=== PATIENT | female | born 1985 | race African-American/Black ===

== ENCOUNTER 2023-01-29 00:20 | Emergency (ER) | payer BC ==
--- OUTSIDE RECORDS SUMMARY | 2023-01-29 00:23 | XMS REPORT | Continuity of Care Document ---
:1985 Author Organization [facility] t Address [address] [address] Care Team Providers Name Role Phone [email or web address] Attending Clinician Unavailable [email or web address] Admitting Clinician Unavailable Problems This patient has no known problems. Allergies, Adverse Reactions, Alerts This patient has no known allergies or adverse reactions. Medications This patient has no known medications. Procedures This patient has no known procedures. Encounters Start End Encounter Admission Attending Care Care Encounter Source Date/Time Date/Time Type Type Clinicians Facility Department ID 2023-01-11 2023-01-11 Outpatient [email or web address] PRIV PRIV [id number] [facility] 00:00:00 00:00:00 diyala_S [id number] Medic al Results This patient has no known results.
[2023-01-29 00:52] LABS: Absolute Lymphocytes (CBC) 1.7 K/uL (0.7-4.9); Hematocrit 38.8 % (36.0-45.0); Lymphocytes % 15.9 % (15.3-44.8); MCV 89.4 fL (80-100); MPV 7.9 fL (7.6-11.3); Platelets 248 thou/uL (152-406); RBC Red Blood Cell Count 4.34 M/uL (3.86-4.86)
[2023-01-29] MEDS ORDERED: NA CHLORIDE 0.9% 1,000 ML ONE (01:06)
[2023-01-29] MEDS ORDERED: LORazepam 2 MG/ML VIAL ONE (01:06)
[2023-01-29 01:12] LABS: Potassium 3.4 mEq/L (3.5-5.1); Troponin High Sensitivity 3.2 pg/mL (<58.9)
--- NOTE | 2023-01-29 01:50 | EDPHYS ---
Physician Documentation [facility] Name: Yvrose Ballesteros Age: 37 yrs Sex: Female : 1985 Arrival Date: 01/29/2023 Time: 00:20 Bed 14 Private MD: ED Physician Brian Wheatley HPI: 01/29 00:24 This 37 yrs old Black Female presents to ER via Unassigned with complaints of High ec2 Blood Pressure, Irregular Pulse, Chest Tightness, Headache. 00:49 Patient with history of hypertension as well as ADHD arrives today due to concern for ec2 chest palpitations. States that she had noticed palpitations starting several hours ago. [place] felt her heart racing. Patient reports no chest pain or tightness, denies any leg swelling, denies any PE risk factors. Patient reports a history of ADHD which she takes Adderall for.. Historical: - Allergies: 00:31 No Known Allergies; kl - Home Meds: 00:31 Adderall XR Oral [Active]; BP med [Active]; kl - PMHx: 00:31 Hypertensive disorder; ADHD; kl - Immunization history:: Adult Immunizations not immunized. - Social history:: Smoking status: Patient reports the use of cigarette tobacco products, smokes one-half pack cigarettes per day. ROS: 00:49 Constitutional: as per hpi ec2 Exam: 00:49 Constitutional: GEN: NAD Head: atraumatic Eyes: EOMI Ears: External ears are ec2 normal. CV: Tachycardia LUNGS: no respiratory distress ABD: non-distended SKIN: no evidence of rashes MSK: no evidence of trauma NEURO: moves all extremities equally. Psych: Anxious individual Vital Signs: 00:29 BP 137 / 89; Pulse 115; Resp 20; Pulse Ox 100% on R/A; Weight 72.12 kg; Height 5 ft. 6 kl in. ; Pain 0/10; 00:50 Temp 98.8(O); km8 00:50 BP 121 / 83; Pulse 108; Resp 16; Pulse Ox 100% on R/A; km8 01:00 BP 130 / 87; Pulse 103; Resp 16; Pulse Ox 100% ; km8 01:30 BP 121 / 81; Pulse 101; Resp 16; Pulse Ox 100% on R/A; km8 01:42 BP 121 / 81; Pulse 99; ec2 02:00 BP 123 / 89; Pulse 99; Resp 16; Pulse Ox 100% on R/A; km8 00:29 Body Mass Index 25.66 (72.12 kg, 167.64 cm) kl 00:29 Pain Scale: Adult kl Crawford Coma Score: 00:38 Eye Response: spontaneous(4). Motor Response: obeys commands(6). Verbal Response: km8 oriented(5). Total: 15. MDM: 00:23 Patient medically screened. ec2 00:41 ED course: EKG independently reviewed and interpreted by me, shows sinus tachycardia, ec2 rate of 121, no acute ST segment elevations, nonconcerning intervals.. 00:49 Data reviewed: vital signs. ED course: Patient arrives today due to concern for ec2 palpitations. Examination remarkable for nontoxic individual who is an anxious individual who has tachycardia noted on examination. Will obtain lab work, cardiac work-up, evaluate for processes such as ACS and thyroid pathology as well as electrolyte disturbances. EKG already obtained and interpreted as above. We will also give the patient crystalloid and Ativan.. 01:38 ED course: Patient's lab work remarkable for slight hypokalemia with a potassium of 3.4 ec2 which will supplement. CBC is reassuring. TSH and troponin are reassuring. . 01:39 ED course: Chest x-ray independently reviewed and interpreted by me, shows no acute ec2 intrathoracic process.. 01:48 ED course: On reassessment patient reports complete resolution of her symptoms. I ec2 considered adding on a D-dimer however patient does not report persistent symptoms and does not have a convincing story for PE. If symptoms progress or return instructed her to come back to the emergency department. Will discharge home, return precautions given.. 01/29 00:25 Order name: Basic Metabolic Panel; Complete Time: ec2 01/29 00:25 Order name: CBC with Diff; Complete Time: ec2 01/29 00:25 Order name: Troponin HS; Complete Time: ec2 01/29 00:50 Order name: TSH; Complete Time: ec2 01/29 00:25 Order name: XRAY Chest (1 view) ec2 01/29 00:25 Order name: EKG; Complete Time: 00:25 ec2 11/19 00:25 Order name: Cardiac monitoring; Complete Time: ec2 01/29 00:25 Order name: EKG - Nurse/Tech; Complete Time: ec2 01/29 00:25 Order name: IV Saline Lock; Complete Time: :49 ec2 01/29 00:25 Order name: Labs collected and sent; Complete Time: ec2 01/29 00:25 Order name: O2 Per Protocol; Complete Time: ec2 01/29 00:25 Order name: O2 Sat Monitoring; Complete Time: ec2 Administered Medications: 00:57 Drug: NS 0.9% IV 1000 ml IV at 1 bolus Per protocol; 1000 mL bolus Route: IV; Rate: 1 km8 bolus; Site: right antecubital; 02:17 Follow up: IV Status: Completed infusion; IV Intake: 1000ml km8 00:57 Drug: Ativan IVP 1 mg IVP once Route: IVP; Site: right antecubital; km8 01:39 Follow up: Response: No adverse reaction km8 01:55 Drug: Potassium Chloride PO 40 mEq PO once Route: PO; km8 02:17 Follow up: Response: No adverse reaction km8 Disposition Summary: 01/29/23 01:49 Discharge Ordered Condition: Stable ec2 Diagnosis - Hypokalemia ec2 - Palpitations ec2 Followup: ec2 - With: Private Physician - When: - Reason: Re-evaluation by your physician Discharge Instructions: - Discharge Summary Sheet ec2 - Potassium Content of Foods ec2 - Palpitations ec2 Forms: - Medication Reconciliation Form ec2 - Thank You Letter ec2 - Antibiotic Education ec2 - Prescription Opioid Use ec2 - Patient Portal Instructions ec2 - Leadership Thank You Letter ec2 Signatures: Dispatcher [employer] Zuly Beal RN RN Brian Michael MD MD 2 Carmencita Correa RN RN km8
--- NOTE | 2023-01-29 01:50 | ER ---
Nurse's Notes [facility] Name: Yvrose Ballesteros Age: 37 yrs Sex: Female : 1985 Arrival Date: 01/29/2023 Time: 00:20 Bed 14 Private MD: Diagnosis: Hypokalemia;Palpitations Presentation: 01/29 00:29 Chief complaint: Patient states: "fast heart rate for several hours. Denies chest pain kl at this time dos reports chest pain ans SOB with activity earlier while walking. Coronavirus screen: Vaccine status: Patient reports receiving the 2nd dose of the covid vaccine. Ebola Screen: Patient negative for fever greater than or equal to 101.5 degrees Fahrenheit, and additional compatible Ebola Virus Disease symptoms. Initial Sepsis Screen: Does the patient meet any 2 criteria? No. Patient's initial sepsis screen is negative. Does the patient have a suspected source of infection? No. Patient's initial sepsis screen is negative. Risk Assessment: Do you want to hurt yourself or someone else? Patient reports no desire to harm self or others. 00:29 Method Of Arrival: Ambulatory 00:29 Acuity: RIMA 3 kl 00:41 Onset of symptoms was January 29, 2023. km8 Triage Assessment: 00:32 General: Appears distressed, Behavior is anxious. Pain: Denies pain. Cardiovascular: kl Capillary refill < 3 seconds Rhythm is sinus tachycardia. Respiratory: No deficits noted. GI: No deficits noted. No signs and/or symptoms were reported involving the gastrointestinal system. : No deficits noted. No signs and/or symptoms were reported regarding the genitourinary system. Historical: - Allergies: 00:31 No Known Allergies; kl - Home Meds: 00:31 Adderall XR Oral [Active]; BP med [Active]; kl - PMHx: 00:31 Hypertensive disorder; ADHD; kl - Immunization history:: Adult Immunizations not immunized. - Social history:: Smoking status: Patient reports the use of cigarette tobacco products, smokes one-half pack cigarettes per day. Screenin:38 [facility] ED Fall Risk Assessment (Adult) History of falling in the last 3 months, km8 including since admission No falls in past 3 months (0 pts) Confusion or Disorientation No (0 pts) Intoxicated or Sedated No (0 pts) Impaired Gait No (0 pts) Mobility Assist Device Used No (0 pt) Altered Elimination No (0 pt) Score/Fall Risk Level 0 - 2 = Low Risk Oriented to surroundings, Maintained a safe environment, Educated pt \\T\\ family on fall prevention, incl call for assistance when getting out of bed, Assessed \\T\\ reinforced patient's understanding of fall precautions. Abuse screen: Denies threats or abuse. Denies injuries from another. Nutritional screening: No deficits noted. Tuberculosis screening: No symptoms or risk factors identified. Assessment: 00:38 General: Appears in no apparent distress. comfortable, Behavior is cooperative, km8 appropriate for age, anxious. Pain: Denies pain. n/a Pain began n/a. Neuro: Goodman Agitation-Sedation Scale (RASS): 0 - Alert and Calm Level of Consciousness is awake, alert, obeys commands, Oriented to person, place, time, situation. Cardiovascular: Denies chest pain, Capillary refill < 3 seconds Patient's skin is warm and dry. Respiratory: Reports shortness of breath on exertion Airway is patent Respiratory effort is even, unlabored, Respiratory pattern is regular, symmetrical. GI: No signs and/or symptoms were reported involving the gastrointestinal system. : No signs and/or symptoms were reported regarding the genitourinary system. EENT: No signs and/or symptoms were reported regarding the EENT system. Derm: No signs and/or symptoms reported regarding the dermatologic system. Skin is intact, is healthy with good turgor, Skin is dry, Skin is pink, warm \\T\\ dry. normal, Skin temperature is warm. Musculoskeletal: No signs and/or symptoms reported regarding the musculoskeletal system. Range of motion: intact in all extremities. 01:27 Reassessment: Patient appears in no apparent distress at this time. No changes from km8 previously documented assessment. Patient and/or family updated on plan of care and expected duration. Pain level reassessed. Patient is alert, oriented x 3, equal unlabored respirations, skin warm/dry/pink. 01:56 Reassessment: Patient appears in no apparent distress at this time. Patient and/or km8 family updated on plan of care and expected duration. Pain level reassessed. Patient is alert, oriented x 3, equal unlabored respirations, skin warm/dry/pink. Patient states feeling better. Patient states symptoms have improved. Vital Signs: 00:29 BP 137 / 89; Pulse 115; Resp 20; Pulse Ox 100% on R/A; Weight 72.12 kg; Height 5 ft. 6 kl in. ; Pain 0/10; 00:50 Temp 98.8(O); km8 00:50 BP 121 / 83; Pulse 108; Resp 16; Pulse Ox 100% on R/A; km8 01:00 BP 130 / 87; Pulse 103; Resp 16; Pulse Ox 100% ; km8 01:30 BP 121 / 81; Pulse 101; Resp 16; Pulse Ox 100% on R/A; km8 01:42 BP 121 / 81; Pulse 99; ec2 02:00 BP 123 / 89; Pulse 99; Resp 16; Pulse Ox 100% on R/A; km8 00:29 Body Mass Index 25.66 (72.12 kg, 167.64 cm) kl 00:29 Pain Scale: Adult kl Mikki Coma Score: 00:38 Eye Response: spontaneous(4). Motor Response: obeys commands(6). Verbal Response: km8 oriented(5). Total: 15. ED Course: 00:23 Patient arrived in ED. [id number] 00:23 Brian Wheatley MD is Attending Physician. ec2 00:24 Carmencita Correa, TRACI is Primary Nurse. km8 00:31 Triage completed. kl 00:33 EKG completed in triage. Results shown to MD. kl 00:38 Patient has correct armband on for positive identification. Placed in gown. Bed in low km8 position. Call light in reach. Side rails up X2. Client placed on continuous cardiac and pulse oximetry monitoring. NIBP monitoring applied. monitoring manager on. Door closed. Noise minimized. Lights dimmed. 00:38 Patient maintains SpO2 saturation greater than 95% on room air. km8 00:41 Arm band placed on right wrist. km8 00:49 XRAY Chest (1 view) In Process Unspecified. EDMS 00:49 Inserted saline lock: 20 gauge in right antecubital area, using aseptic technique. km8 Blood collected. 00:49 Troponin HS Sent. km8 00:49 CBC with Diff Sent. km8 00:49 Basic Metabolic Panel Sent. km8 00:59 TSH Sent. km8 01:55 Provided Education on: d/c teaching. km8 01:55 No provider procedures requiring assistance completed. km8 02:17 IV discontinued, intact, bleeding controlled, No redness/swelling at site. Pressure km8 dressing applied. Administered Medications: 00:57 Drug: NS 0.9% IV 1000 ml IV at 1 bolus Per protocol; 1000 mL bolus Route: IV; Rate: 1 km8 bolus; Site: right antecubital; 02:17 Follow up: IV Status: Completed infusion; IV Intake: 1000ml km8 00:57 Drug: Ativan IVP 1 mg IVP once Route: IVP; Site: right antecubital; km8 01:39 Follow up: Response: No adverse reaction km8 01:55 Drug: Potassium Chloride PO 40 mEq PO once Route: PO; km8 02:17 Follow up: Response: No adverse reaction km8 Medication: 01:55 VIS not applicable for this client. km8 Intake: 02:17 IV: 1000ml; Total: 1000ml. km8 Outcome: 01:49 Discharge ordered by . ec2 02:17 Discharged to home ambulatory, km8 02:17 Condition: good 02:17 Discharge instructions given to patient, Instructed on discharge instructions, follow up and referral plans. Demonstrated understanding of instructions, follow-up care, 02:18 Patient left the ED. km8 Signatures: Dispatcher [employer] Zuly Beal, RN Celina Khalil6 Brian Wheatley MD MD ec2 Marx, Katie, RN RN km8
[2023-01-29] MEDS ORDERED: POTASSIUM CL SA 10 MEQ TAB PO ONE (02:05)
[2023-01-29 02:31] VITALS: O2SAT 100
[2023-01-29 02:36] VITALS: TEMP 98.8
[2023-01-29 02:45] VITALS: BP 123/89
--- NOTE | 2023-01-30 12:42 | RAD REPORT ---
EXAM DESCRIPTION: XR Chest, 1 View CLINICAL HISTORY: The patient is 37 years old and is Female; CHEST PAIN TECHNIQUE: Frontal view of the chest. COMPARISON: No relevant prior studies available. FINDINGS: LUNGS: Unremarkable. No consolidation. PLEURAL SPACE: Unremarkable. No pneumothorax. HEART: Unremarkable. No cardiomegaly. MEDIASTINUM: Unremarkable. Normal mediastinal contour. BONES/JOINTS: Unremarkable. No acute fracture. UPPER ABDOMEN: Unremarkable as visualized. IMPRESSION: No acute cardiopulmonary process. Electronically signed by: Jennifer Burks MD 01/29/2023 01:19 AM CHEMICAL TREATMENT PLANT TECHNICIAN Due to temporary technical issues with the PACS/Fluency reporting system, reports are being signed by the in house radiologist without review as a courtesy to ensure prompt reporting. The interpreting r adiologist is fully responsible for the content of the report.
--- NOTE | 2023-02-01 17:03 | EKG ---
Test Date: 2023-01-29 Test Time: 00:31:10 Senior Architect/Design Manager: BK MEASUREMENT RESULTS: Intervals: Rate: 121 MT: 166 QRSD: 98 QT: 308 QTc: 437 [place]: P: 66 MT: 166 QRS: 65 T: 58 INTERPRETIVE STATEMENTS: Sinus tachycardia Low voltage QRS Borderline ECG No previous ECG available for comparison Electronically Signed On 02-01-23 16:54:40 IT SUPPORT ANALYST by Teddy Webster
== END 2023-01-29 02:18 | disposition home or self-care (01) ==
LOC: ER 00:20
DX: E87.6 Hypokalemia (principal); R00.2 Palpitations; R06.02 Shortness of breath; I10 Essential (primary) hypertension; R51.9 Headache, unspecified; R07.89 Other chest pain; F90.9 Attention-deficit hyperactivity disorder, unspecified type; Z72.0 Tobacco use
CPT/HCPCS: 96361; 93005; 85025; 80048; 36415; 84443; 84484; 71045; 96374; 99285; J7030